=== PATIENT | female | born 1970 | race Caucasian/White ===

== ENCOUNTER 2022-06-24 10:43 | Day surgery (SDC) | payer OTHER ==
[~2022-06-24] VITALS: Ht 1717 cm; Wt 75.0 kg
[2022-06-24] MEDS ORDERED: WELLBUTRIN XL300 MG PO (11:04)
[2022-06-24] MEDS ORDERED: METHIMAZOLE5 MG PO (11:05)
--- NOTE | 2022-06-24 11:53 | NUR ---
1145 HAS BEEN INFORMED OF WAIT. STATES OK. WARM BLANKET GIVEN. STOCK SELECTOR AWARE OF PT. WAITING.
--- NOTE | 2022-06-24 13:00 | NUR ---
06/24/22 1300 Mame Morrison 1256 PATIENT ARRIVES TO PACU RESTING WITH EYES CLOSED. AWAKENS WITH VERBAL STIMULI. SLOW TO RESPOND TO QUESTIONS, BACK TO SLEEP WHEN NOT STIMULATED. RESP EVEN AND UNLABORED, NC AT 3 LITERS, TURNED OFF ON ARRIVAL TO PACU.
--- NOTE | 2022-06-27 13:32 | OR ---
[facility] [address] [place], [place] [address] Signed DATE OF OPERATION: 06/24/2022 SURGEON: Devi Churchill MD PREOPERATIVE DIAGNOSES: 1. Longstanding hyperthyroidism, treated with methimazole. 2. Colon screening. POSTOPERATIVE DIAGNOSIS: Sigmoid and left-sided diverticulosis. PROCEDURES: Total colonoscopy to cecum. ANESTHESIA: Intravenous sedation, fentanyl 100 mcg and Versed 5 mg. INDICATIONS: This 52-year-old white woman is from [place], [place] and the patient previously of Dr. Ed Romero, now Kathy Llanes PA-C. She underwent colonoscopy by sc in 2019 for screening, which did demonstrate polyps, but they were found to be mostly hypertrophied colonic mucosa and hyperplastic. There was no evidence of adenoma. Surveillance colonoscopy was recommended despite this. The patient also has issues related to hyperthyroidism, for which she has been treated with methimazole. She is undergoing further evaluation. She did have an ultrasound showing two nodules considered TI-RADS category IV, 1.1 cm in the right lobe, 1.7 cm in the left lobe. She is admitted at this time to undergo colonoscopy and understands the risks of bleeding, infection, and perforation. FINDINGS: The prep was good. Complete colonoscopy was undertaken to the cecum without question. She had diverticular changes in the sigmoid and left colon, but no sign of polyps or colitis. DESCRIPTION OF PROCEDURE: The patient was brought to the endoscopy suite and placed in lateral decubitus position given intravenous sedation to the point of slurred speech and nystagmus. Digital rectal examination was normal. An Olympus video colonoscope was passed into the rectum and manipulated throughout the Electronically Signed By: DEVI CHURCHILL MD 06/27/22 1332 PATIENT NAME: MARIE MUHAMMAD OPERATIVE REPORT DATE OF : 68 REPORT #: [id number] PHYSICIAN: DEVI CHURCHILL MD PCP: ED ROMERO MD REPORT IS CONFIDENTIAL AND NOT TO BE RELEASED WITHOUT AUTHORIZATION [facility] [address], [place] [address] Signed colon, ultimately intubating the cecum itself. The ileocecal valve and appendiceal orifice were normal. Photographs were taken. The scope was withdrawn, examination throughout showed no sign of polyps, only diverticular changes as previously noted. The rectum was normal as well. Scope was removed and the patient was taken to the recovery room in good condition. CONCLUDING DIAGNOSIS: Diverticulosis, no evidence of polyps. PLAN: Recommend repeat colonoscopy in 7-10 years or sooner if clinically indicated. She will return to the ongoing care of Kathy Llanes in [place]. I am happy and planning to see her again regarding further evaluation of her thyroid. MD TOBIN Vidal/AGUILA /[id number] cc: Kathy Llanes PA-C [facility] Copies: ~ Electronically Signed By: DEVI CHURCHILL MD 06/27/22 1332 PATIENT NAME: MARIE MUHAMMAD JO OPERATIVE REPORT DATE OF : 68 REPORT #: [id number] PHYSICIAN: DEVI CHURCHILL MD PCP: ED ROMERO MD REPORT IS CONFIDENTIAL AND NOT TO BE RELEASED WITHOUT AUTHORIZATION
== END 2022-06-24 14:00 | disposition home or self-care (01) ==
LOC: DS 10:43 → OPS 10:43 → DS 12:00 → OPS 12:00
PROVIDERS: ATTEND Surgery
PROC: 0DJD8ZZ Inspection of Lower Intestinal Tract, Via Natural or Artificial Opening Endoscopic (ICD-10-PCS; principal; 2022-06-24 12:00)
DX: Z12.11 Encounter for screening for malignant neoplasm of colon (principal); E03.9 Hypothyroidism, unspecified; K57.30 Diverticulosis of large intestine without perforation or abscess without bleeding; E78.5 Hyperlipidemia, unspecified; E05.90 Thyrotoxicosis, unspecified without thyrotoxic crisis or storm; E04.1 Nontoxic single thyroid nodule
CPT/HCPCS: 99153; G0500; J2250; J3010; J7121

== ENCOUNTER 2022-08-06 08:51 | Day surgery (SDC) | payer OTHER ==
--- NOTE | ~2022-08-06 | OR ---
[facility] [address] [place], [place] [address] Draft DATE OF OPERATION: 08/06/2022 SURGEON: Devi Churchill MD PREOPERATIVE DIAGNOSES: 1. Graves disease, symptoms controlled on methimazole (2019). 2. Right thyroid lobe 1.1 cm nodule. POSTOPERATIVE DIAGNOSES: 1. Graves disease, symptoms controlled on methimazole (2019). 2. Right thyroid lobe 1.1 cm nodule. PROCEDURE: Ultrasound-guided fine-needle aspiration biopsy of right thyroid nodule. ANESTHESIA: 1% lidocaine 2 mL. INDICATION: This 52-year-old white woman is a former patient of Dr. Romero and has been known to have hyperthyroidism since at least 2018. She had been managed with methimazole orally administered. She was noted to have no evidence of thyrotoxicosis currently; withdrawal of methimazole in the past has resulted in recurrent symptoms of hyperthyroidism including tremor, anxiety, and sweating. She continues to have a suppressed TSH. An ultrasound performed in December of this year showed two nodules considered TIRADS category 4, 1.1 cm right thyroid nodule and a small 0.7 cm nodule on the left thyroid. She has no associated symptoms of dysphagia. Consideration is made for thyroidectomy as a method of control of her hyperthyroidism so as to avoid long-term use of methimazole. Characterization of the dominant nodule on the right side is recommended to assess for malignancy which may in some ways modify operative management. I have recommended ultrasound-guided fine-needle aspiration biopsy on that basis. The risk of bleeding, infection, and so forth were reviewed with her. She understands and wished to proceed. FINDINGS: The left thyroid nodule was very small. The right-sided concordant to 1.2 cm or so in size. Multiple passes with a 22-gauge needle were taken through the thyroid nodule under direct visualization. She tolerated the procedure well. PATIENT NAME: MARIE MUHAMMAD OPERATIVE REPORT DATE OF : 68 REPORT #: [id number] PHYSICIAN: DEVI CHURCHILL MD PCP: LUZ ROMERO MD REPORT IS CONFIDENTIAL AND NOT TO BE RELEASED WITHOUT AUTHORIZATION [facility] [address] [facility] [place] [address] Draft DESCRIPTION OF PROCEDURE: In the day surgery area, the patient was placed in a supine position with a shoulder roll allowing for neck extension. The neck was evaluated by SonoSite ultrasound device confirming the right thyroid nodule, which was anteriorly located. The left side showed minimal nodule and of no real concern at this point. The neck was then prepared with a chlorhexidine solution and draped sterilely. A sterilely draped probe as well as sterile technique of gloves, gown and so forth were undertaken allowing for injection of 0.25% Marcaine with epinephrine in alignment with the nodule in question in the right lobe. Under direct visualization, multiple passes were made with three separate syringes with 22-gauge needles into the nodule itself. Scant material was retrieved, but certainly solution for further analysis. There was no bleeding or other problem. A Band-Aid was applied. MD TOBIN Vidal/MIHIRL /[id number] cc: [facility] Copies: ~ PATIENT NAME: MARIE MUHAMMAD JO OPERATIVE REPORT DATE OF : 68 REPORT #: [id number] PHYSICIAN: DEVI CHURCHILL MD PCP: LUZ ROMERO MD REPORT IS CONFIDENTIAL AND NOT TO BE RELEASED WITHOUT AUTHORIZATION
[~2022-08-06 08:51] MED LIST: METHIMAZOLE5 MG PO; WELLBUTRIN XL300 MG PO
--- NOTE | 2022-08-06 09:47 | NUR ---
PT TOLERATES THYROID BX WITHOUT ISSUES. SHE IS DC'D HOME AMBULATORY.
== END 2022-08-06 09:20 | disposition home or self-care (01) ==
LOC: OPS 08:51 → DS 09:00 → OPS 09:20 → OPV-DS 09:30 → EDSTATUS 09:30 → OPS 09:30
PROVIDERS: ATTEND Surgery
PROC: 0GBH3ZX Excision of Right Thyroid Gland Lobe, Percutaneous Approach, Diagnostic (ICD-10-PCS; principal; 2022-08-06)
DX: E04.2 Nontoxic multinodular goiter (principal); E05.00 Thyrotoxicosis with diffuse goiter without thyrotoxic crisis or storm

== ENCOUNTER 2023-06-16 08:35 | Day surgery (SDC) | payer OTHER ==
[2023-06-07 13:19] VITALS: BP 130/92
[~2023-06-16] VITALS: Ht 170.2 cm; Wt 82.9 kg
[~2023-06-16 08:35] MED LIST changes: +CALCIUM500 MG PO; +PROZAC20 MG PO; +TRAZODONE HCL50 MG PO
[2023-06-16 08:50] VITALS: BP 124/73
--- NOTE | 2023-06-16 09:15 | NUR ---
4704 PT REQUESTED GIL CHURCHILL IN TO TALK TO PT. SEE NEW ORDER.
--- NOTE | 2023-06-16 10:53 | NUR ---
has been resting with eyes closed,even respirations. have not awaken for updates.
--- NOTE | 2023-06-16 11:14 | NUR ---
WOKE UP PT. UP TO BR. SCDS ON WARM BLANKET ON.
--- NOTE | 2023-06-16 15:20 | NUR ---
06/16/23 1520 Sheets,Luz 1511 PT ARRIVED TO PACU ON 6L VIA MASK, PT STARTING TO LIFT HEAD OFF PILLOW. EYES REMAIN CLOSED. RESP EVEN AND UNLABORED. 1514 ORAL AIRWAY REMOVED. 1517 PT MOVING HEAD AND DENIES PAIN. O2 MASK REMOVED AND HOB INCREASED SLIGHTLY.
[2023-06-16 16:25] VITALS: BP 108/68
--- NOTE | 2023-06-16 16:53 | NUR ---
PT ARRIVED AT ROOM 119 AT 1625 VIA STRETCHER FROM PACU, ALERT AND ORIENTED. THYROID AREA SURGICAL DRESSING IN PLACE WITH OLD SHADOWING. IV SITE R HAND IN PLACE, POST OP CPOX IN PLACE
[2023-06-16 17:23] VITALS: BP 123/70
--- NOTE | 2023-06-16 17:48 | NUR ---
pt ate 100% of dinner. no n/v. no c/o pain. Up to br, 1PA, voided, did own pericare, back to bed. tolerataing liquids well
[2023-06-16 18:29] VITALS: BP 116/64
--- NOTE | 2023-06-16 18:32 | NUR ---
up to brp, voided, back to bed, tolerated well, no c/o pain or n/v. working on IS, up to 2250 each time. neck dressing with old drainage. scds in place. IVF infusing, off O2 at this time, post op CPOX in place, sats 94-97% room air at this time, moist non productive cough present. c/o mild throat discomfort. ice hips given
[2023-06-16 19:32] VITALS: BP 126/73
--- NOTE | 2023-06-16 19:58 | NUR ---
Patient resting in bed, visiting with family, appears comfortable, Report provided by dayshift RN, call light within reach.
--- NOTE | 2023-06-16 22:29 | NUR ---
Patient resting in bed, mid throat dressing intact with old small drainage noted to left side. Patient denies SOB or difficulty swallowing, states "just sore". VSS, Medicated for discomfort, HOB remains elevated >30', Light are out now and patient trying to go to sleep after evening meds. Patient requested and given ice for throat, call light within reach.
--- NOTE | 2023-06-17 00:04 | NUR ---
Patient resting with eyes closed, appears comfortable, call light in reach. no distress noted, RR - 18.
[2023-06-17 02:25] VITALS: BP 102/63
--- NOTE | 2023-06-17 02:29 | NUR ---
Patient awake, ambulated to BR, voiding QS. VSS, no c/o pain, no difficulies with breathing or swallowing, throat dressing intact without change. VSS, back to bed, lights out and call light within reach. HOB remains up.
--- NOTE | 2023-06-17 05:09 | NUR ---
Patient has had an uneventful night. She has slept, She has had no complaints, HON elevated, no distress, VS have remained stabel, Up to the BR without difficulty. Patient remains sleeping, appears comfortable without any noted distress. call light within reach.
[2023-06-17 05:34] LABS: ANION GAP 11.1 (7-21); BUN/CREATININE RATIO 15.38 (6.0-28.6); CALCIUM 8.6 mg/dL (8.5-10.1); CREATININE, SERUM 0.91 mg/dL (0.55-1.02); POTASSIUM 4.1 mmol/L (3.5-5.1)
[2023-06-17 06:03] VITALS: BP 105/63
--- NOTE | 2023-06-17 06:19 | NUR ---
Patient continues to sleep between care, Given morning medications, Calcium level @ 8.6. Dressing remains intact with not drainage. Call light within reach.
--- NOTE | 2023-06-17 06:48 | NUR ---
Patient urine output for shift 1600. taking in fluid without difficulty, MD NUIQUE notified and okay'd discontinuing IV fluids. Also reported patients calcium level @ 8.6.
--- NOTE | 2023-06-17 07:05 | NUR ---
REPORT RECEIVED FROM NUNU ZEPEDA. PT LAYING IN BED ON LEFT SIDE. RR EVEN AND UNLABORED. O2 SATS AT 93% ON RA. RR OF 18 NOTED. NO NEEDS IDENTIFIED AT THIS TIME. CALL LIGHT IN REACH.
[2023-06-17] MEDS ORDERED: FLUOXETINE HCL40 MG PO (09:02)
--- NOTE | 2023-06-17 09:05 | NUR ---
IN TO ADMINISTER MEDICATION, SEE MAR. PT TAKES PO MEDICATIONS WITH NO ISSUES. PT SITTIN GUP IN BED AND RESPONDS WHEN ADDRESSED. PT REPORTING PAIN 5/10 IN NECK/INCISION AREA, PRN PAIN MEDICATION ADMINISTERED, SEE MAR. ASSESSMENT COMPLETE. LUNG SOUNDS CLEAR. BOWEL TONES ACTIVE. DRESSING TO NECK D/I WITH SMALL AMOUNT OF SHADOWING NOTED. IV FLUSHES WNL. PT DENIES ANY OTHER NEEDS AT THIS TIME. CALL LIGHT IN REACH.
--- NOTE | 2023-06-17 09:38 | NUR ---
MED REC COMPLETE
--- NOTE | 2023-06-17 10:26 | NUR ---
IN TO ROUND ON PT. PT SITTING UP IN BED. PT DENIES ANY OTHER NEEDS AT THIS TIME. CALL LIGHT IN REACH.
[2023-06-17 10:31] VITALS: BP 108/69
--- NOTE | 2023-06-17 10:49 | NUR ---
MS PRATT. PT ON PHONE. DID NOT INTERRUPT. PROVIDED PRAYER.
--- NOTE | 2023-06-17 11:39 | NUR ---
IN TO ROUND ON PT. PT SITTING UP IN BED AND RESPONDS WHEN ADDRESSED. PT REPORTING PAIN 5/10. PRN PAIN MEDICATION ADMINISTERED, SEE MAR. PT DENIES ANY OTHER NEEDS AT THIS TIME. CALL LIGHT IN REACH.
--- NOTE | 2023-06-17 12:18 | NUR ---
IN WITH DR. CHURCHILL. PT SITTING UP IN BED. DR. CHURCHILL TO PLACE DC ORDERS. IV REMOVED WNL. PT SET UP TO GET DRESSED. PT DENIES ANY OTHER NEEDS AT THIS TIME. CALL LIGHT IN REACH. FRIEND IN ROOM.
[2023-06-17] MEDS ORDERED: NICOTINE1 EAC2 TD (12:27)
[2023-06-17] MEDS ORDERED: ACETAMINOPHEN500 MG PO (12:27)
[2023-06-17] MEDS ORDERED: OXYCODON-ACETA1 EAC2 PO (12:27)
[2023-06-17] MEDS ORDERED: OYSTER SHELL C500 MG PO (12:28)
[2023-06-17] MEDS ORDERED: LEVOTHYROXINE150 MCG PO (12:28)
--- NOTE | 2023-06-17 12:43 | NUR ---
IN TO GO OVER DC INSTRUCTIONS. VERBAL AND WRITTEN INSTRUCTIONS PROVIDED. QUESTIONS ANSWERED. PT VERBALIZES UNDERSTANDING. HARD COPY OF RX PROVIDED FOR PT WELL ORDERS FOR LABS FOR FOLLOW UP APPOINTMENT. PT INFORMED TO CALL TO MAKE A FOLLOW UP APPOINTMENT ON TUESDAY. JAYDON LEE OBTAINING VITALS. VITALS COMPLETE. PT DENEIS ANY OTHER NEEDS AT THIS TIME. CALL LIGHT IN REACH. PT WAITING TO TALK TO PHARMACY. FRIEND IN ROOM.
--- NOTE | 2023-06-17 14:58 | OR ---
[facility] [address] [place], [place] [address] Signed DATE OF OPERATION: 06/16/2023 SURGEON: Devi Churchill MD PREOPERATIVE DIAGNOSES: 1. Long-standing hyperthyroidism treated with methimazole. 2. Right thyroid nodule. POSTOPERATIVE DIAGNOSES: 1. Long-standing hyperthyroidism treated with methimazole. 2. Right thyroid nodule. PROCEDURE: Near-total thyroidectomy. ANESTHESIA: General endotracheal, Sahara Ross CRNA. INDICATION: This 53-year-old white woman is a patient of Lopez Heard PA-C in [place], [place]. She was seen by me previously with findings of hyperthyroidism as well as a nodule in the right thyroid gland. An ultrasound-guided fine-needle aspiration biopsy by me in August 06, 2022 of her right thyroid nodule confirmed a follicular nodule, [place] category 2. An Iodine 123 scan showed uniform and intense increase of right and left thyroid lobes. The nodule did not represent a "hot nodule." Given her relatively young age and preference to avoiding lifelong methimazole therapy, she has been offered total thyroidectomy. The risk of bleeding, infection, recurrent laryngeal nerve injury, external laryngeal nerve injury, and other unforeseen complications related to thyroidectomy were reviewed in detail. She understands and wished to proceed with total thyroidectomy. She additionally understands she will need lifelong thyroid hormone replacement. FINDINGS: The thyroid itself was rather spongy. Right lobe was larger than the left. The upper portion of the right lobe extended higher in the neck. The nodule of the right lobe was firm and dense and somewhat yellowish in color and was excised of course with the remaining specimen. A small nub of tissue posteriorly on the right side was left in situ, which contained parathyroid tissue and obscure the recurrent laryngeal nerve. On the left side, the recurrent laryngeal nerve was well identified and certainly unharmed. Electronically Signed By: DEVI CHURCHILL MD 06/17/23 1458 PATIENT NAME: MARIE MUHAMMAD OPERATIVE REPORT DATE OF : 68 REPORT #: [id number] PHYSICIAN: DEVI CHURCHILL MD PCP: LOPEZ HEARD PAC REPORT IS CONFIDENTIAL AND NOT TO BE RELEASED WITHOUT AUTHORIZATION [facility] [address] [place], [place] [address] Signed There were no complications. The thyroid did have a small pyramidal lobe without pathologic alteration otherwise. DESCRIPTION OF PROCEDURE: The patient was brought to the operating room, given a general endotracheal anesthetic. A shoulder roll was placed allowing for gentle neck extension. Careful padding of all pressure points was undertaken. A Smith catheter was not placed. The table was placed in a lex lounge position after appropriately stabilizing the head and neck in mild extension. The neck and upper torso was prepared with a chlorhexidine solution and draped sterilely. She received preoperative antibiotic Ancef. She did not receive heparin subcutaneously, but did have sequential compression device stockings. After sterile draping, natural skin creases were identified. The most dominant was in the superior neck which had been rather inappropriate for incision. Lower down in the neck were two small transverse natural skin creases, one of which was used for incision. The incision was extended between the medial heads of the sternocleidomastoid muscle. Dissection was carried through the dermis sharply and the platysmal and fatty layer with electrocautery. Superior and inferior flaps were developed and Gelpi retractors were placed. The avascular plane between the sternal hyoid muscle was grasped, elevated and incised and the avascular plane between the strap muscles developed superiorly and inferiorly. The right sternohyoid muscle was freed from the underlying sterno thyroid muscle and ultimately a sternothyroid muscles from the underlying right lobe of the thyroid. Using sharp dissection, the loose areolar tissue was dissected free. The thyroid did appear somewhat hypervascular actually. Careful dissection laterally freed the thyroid down to the posterior neck spaces. Dissection was taken superiorly and individual ligation of superior polar arterial branches was undertaken. They were secured with 4-0 silk ties or alternatively clips when more convenient. The medial aspect of the right upper lobe was similarly freed. Attention was turned towards the inferior pole. Dissection there allowed for individual ligation of inferior branches of vein and artery with 4-0 silk ties and clips as appropriate. Using the extracapsular technique of Timothy, a thin membrane over the middle aspect of the right lobe was incised and the posterior thyroidal elements including parathyroid tissue free. It was my intention to leave a small amount of thyroid posteriorly to provide a buffer between the posterior elements including parathyroid gland and recurrent laryngeal nerve. This tissue was carefully divided and the thyroid rotated towards the midline more fully. Ultimately, the ligament of Lyles was incised and the thyroid dissected from the lateral to medial position ultimately encountering the trachea with the isthmus. A pyramidal lobe of the isthmus was noted. this was dissected free as well. Good hemostasis was noted. Some gauze was packed into the empty space and attention turned towards left-sided dissection. With similar technique regarding the strap muscles, the left thyroid lobe was exposed showing a much shorter upper pole. The inferior pole was similar, however. After Electronically Signed By: DEVI CHURCHILL MD 06/17/23 1458 PATIENT NAME: MARIE MUHAMMAD JO OPERATIVE REPORT DATE OF : 68 REPORT #: [id number] PHYSICIAN: DEVI CHURCHILL MD PCP: LOPEZ HEARD PAC REPORT IS CONFIDENTIAL AND NOT TO BE RELEASED WITHOUT AUTHORIZATION [facility] [address] [place], [place] [address] Signed dissecting the thyroid and rotating it towards the midline with similar technique as before, superior polar vessels were individually ligated and divided and clips applied as necessary. Similar dissection was taken inferiorly. The thyroid was rotated towards the midline from the left and the posterior elements allowed to remain in place. Specific identification of parathyroid tissue in distinction to the thyroid gland was not forthcoming though there was no obvious incorporation of parathyroid tissue to the left thyroid lobe. The ligament of Lyles was incised with electrocautery allowing for complete freedom of the thyroid. The thyroid, which included right and left lobes and isthmus as well as pyramidal lobe was elevated and passed for pathology. Notably a right polar 1 cm nodule was noted, which was firm and yellow in color. It was secured with a stitch and marked for additional attention by the pathologist. Irrigation was undertaken in the neck showing no sign of ongoing bleeding. Tisseel (fibrin glue) was applied in an aerosolized manner bilaterally to assure good hemostasis long-term. Closure of the wound was undertaken with reapproximation of the midline strap muscles with interrupted 3-0 Vicryl, the platysmal layer similarly with interrupted 4-0 Vicryl and the skin closed with running subcuticular 4-0. Steri-Strips were applied as was an Acticoat dressing. Blood loss was well less than 50 mL. Sponge, needle and instrument counts were reported as correct x3. MD TOBIN Vidal/MIHIRL /[id number] cc: Lopez Heard PA-C Copies: LOPEZ HEARD ~ Electronically Signed By: DEVI CHURCHILL MD 06/17/23 1458 PATIENT NAME: MARIE MUHAMMAD JO OPERATIVE REPORT DATE OF : 68 REPORT #: [id number] PHYSICIAN: DEVI CHURCHILL MD PCP: LOPEZ HEARD REPORT IS CONFIDENTIAL AND NOT TO BE RELEASED WITHOUT AUTHORIZATION
--- NOTE | 2023-06-21 15:00 | PATH ---
[facility] [address] [place], [place] [address] Signed SPECIMEN(S): A THYROID SPECIMEN SOURCE: A. 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 TWK MICROSCOPIC EXAMINATION: Histologic sections of all submitted blocks are examined by light microscopy. These findings, together with the gross examination, support the pathologic diagnosis. GROSS DESCRIPTION: The specimen, labeled and designated "Murray, B, " and designated on the requisition "thyroid," is received in formalin and consists of 39 g oriented thyroid that has an overall dimension of 7.4 x 6.5 x 3.2 cm. The external surface is violaceous and smooth. A black suture is present on the right thyroid lobe identifying the nodule. The specimen is inked as follows: Anterior-superior blue, anterior-inferior green, posterior black. No parathyroid or lymph node tissue is grossly identified. The left thyroid is a 5.5 x 3.0 x 2.2 cm. The isthmus is 3.1 x 2.7 x 1.2 cm and has an attached pyramidal lobe that is 1.4 x 0.9 x 0.8 cm. The right lobe is 6.6 x 3.4 x 2.6 cm. The specimen is serially sectioned from left to right revealing a 1.2 x 1.0 x 0.7 cm white firm ill-defined nodule present on the upper right thyroid lobe and abuts the anterior surface. The remaining thyroid is deep red and rubbery. Die Sinking Machine Operator sections are submitted in eight cassettes. Cassette Summary: (A1-A2) left thyroid lobe (A3-A4) isthmus with pyramidal lobe (A5-A6) nodule within right lobe, entirely submitted (A7-A8) right thyroid lobe FB (under the direct supervision of a pathologist) PATIENT NAME: MARIE MUHAMMAD PATHOLOGY DATE OF : 68 REPORT #: [id number] PHYSICIAN: FRANCOISE TALBERT PCP: LOPEZ ROMERO PAC REPORT IS CONFIDENTIAL AND NOT TO BE RELEASED WITHOUT AUTHORIZATION [facility] [address] [place], [place] [address] Signed The Gross Description was prepared using a voice recognition system. The report was reviewed for accuracy; however, sound-alike word errors, addition and/or deletions may occur. If there is any question about this report, please contact Client Services. ADDITIONAL NOTES: Immunohistochemical and/or in situ hybridization studies if performed in this case included appropriate positive controls that reacted as expected. This test was developed and its performance characteristics determined by [facility]. It has not been cleared or approved by the U.S. Food and Drug Administration. The FDA has determined that such clearance or approval is not necessary. This test is used for clinical purposes. It should not be regarded as investigational or for research. [facility] is certified under the Clinical Laboratory Improvement Amendments of 1988 (CLIA) as qualified to perform high complexity clinical laboratory testing. PERFORMING LABORATORY: Technical component was performed by [facility], [address] [place] [id number] (CLIA# [id number]). Professional interpretation [facility], [address] [address] (CLIA# [id number]). Diagnostician: Clark Watson MD Pathologist Electronically Signed 06/21/2023 Copies: ~ PATIENT NAME: MURRAYMARIE PATHOLOGY DATE OF : 68 REPORT #: [id number] PHYSICIAN: FRANCOISE PATHOLOGY PCP: LOPEZ ROMERO PAC REPORT IS CONFIDENTIAL AND NOT TO BE RELEASED WITHOUT AUTHORIZATION
== END 2023-06-17 13:15 | disposition home or self-care (01) ==
LOC: DS 08:35 → MS 15:37 → DS 06-17 13:15
PROVIDERS: ATTEND Surgery
PROC: 0GBH0ZZ Excision of Right Thyroid Gland Lobe, Open Approach (ICD-10-PCS; 2023-06-16)
PROC: 0GBG0ZZ Excision of Left Thyroid Gland Lobe, Open Approach (ICD-10-PCS; principal; 2023-06-16 10:30)
DX: D34 Benign neoplasm of thyroid gland (principal); E05.00 Thyrotoxicosis with diffuse goiter without thyrotoxic crisis or storm; E78.5 Hyperlipidemia, unspecified; Z79.899 Other long term (current) drug therapy
CPT/HCPCS: 00320; 36415; 80048; A9270; J0131; J0690; J1100; J1885; J2250; J2405; J2704; J3010; J3490; J7121